=== PATIENT | male | born 1980 | race Hispanic/Latino ===

== ENCOUNTER 2020-01-24 08:57 | Outpatient (NON) | payer OTHER, SELFPAY ==
[2020-01-24 18:34] LABS: SARS-CoV-2 RNA PCR Negative
== END 2020-01-24 08:58 ==
LOC: ANHCOVIDDT 08:59
PROVIDERS: PCP Family Medicine; Visit Provider Physician Assistant
DX: Z20.828 Contact with and (suspected) exposure to other viral communicable diseases (principal); R05 Cough
CPT/HCPCS: 87635; C9803; U0003

== ENCOUNTER → 2020-01-31 11:50 | Outpatient (CLI) | payer OTHER, SELFPAY ==
--- NOTE | ~2020-01-31 | XR_ITS ---
EXAMINATION: XR chest 2V EXAM DATE: 01/31/2020 11:59 INDICATION: R05 - Cough. TECHNIQUE: Frontal and lateral projections of the chest obtained and reviewed. There is no prior joey dy for comparison. FINDINGS: The lungs are clear. There are no pleural effusions. The cardiomediastinal silhouette is within normal limits. There is no pneumothorax suspected. The bones and soft tissues are unremarkab le. IMPRESSION: No acute cardiopulmonary findings. Reviewed, dictated and finalized at location B. 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
== END ==
PROVIDERS: PCP Family Medicine; Visit Provider Family Medicine
DX: R05 Cough (principal)
CPT/HCPCS: 71046

== ENCOUNTER 2020-04-06 19:55 | Emergency (ER) | payer OTHER, SELFPAY ==
--- NOTE | ~2020-04-06 | XR_ITS ---
EXAMINATION: XR foot RT min 3V DATE: 04/06/2020 20:16 INDICATION: Right foot injury. TECHNIQUE: 4 views of right foot were obtained. COMPARISON: None. FINDINGS: There is mild hallux valgus. No fracture. There is mild osteoarthritis of first metatarsoph alangeal joint. There is an enthesophyte at posterior aspect of calcaneal tuberosity. IMPRESSION: 1. Mild hallux valgus. 2. Mild osteoarthritis of first metatarsophalangeal joint. Reviewed, dictated and finalized at location A. 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
[2020-04-06 20:00] VITALS: BP 165/103; PULSE 79; RESP 18; TEMP 36.4; O2SAT 99
--- NOTE | 2020-04-06 20:29 | ED.LOWEXIN ---
HPI - Extremity Injury (Lower) General Chief Complaint: Extremity Injury, Lower Stated Complaint: accident at work/ right foot injury Time Seen by Provider: 04/06/20 20:05 Source: patient Mode of arrival: ambulatory Limitations: no limitations History of Present Illness HPI Narrative: 39-year-old male History of hypertension Presents complaining of pain after dropping a reba on his big toe at work No other problem Related Data Allergies Allergy/AdvReac Type Severity Reaction Status Date / Time naproxen Allergy Unknown dizzy, Verified 04/06/20 20:03 altered mental status Review of Systems Musculoskeletal: Musculoskeletal: Reports arthralgias and Reports joint swelling Integumentary/Breasts: Skin/Breast: Denies rash PMFSH Past Medical History Medical History Anxiety Asthma Depression Hypertension 2018 Kidney stone 2016 Obesity Family History Family History Other Asthma Carcinoma of colon Cerebrovascular accident Depression Glaucoma Hyperlipidemia Hypertension Social History Social History Smoking status: Former smoker (discussed reducing his vaping use) Exam Const: General: no acute distress and alert Orientation/consciousness: patient oriented x3 Resp: Effort & Inspection: normal respiratory effort Neuro: General: patient oriented x3 Speech: normal speech Extrem: Other: Right big toe has a very tiny perhaps 1 mm subungual hematoma at the base and a tiny abrasion/lac of the cuticle on that area Course Vital Signs Vital signs: Vital Signs Temperature 36.4 C 04/06/20 20:00 Pulse Rate 79 04/06/20 20:00 Respiratory Rate 18 04/06/20 20:00 Blood Pressure 165/103 H 04/06/20 20:00 Pulse Oximetry 99 04/06/20 20:00 Temperature 36.4 C 04/06/20 20:00 Pulse Rate 79 04/06/20 20:00 Respiratory Rate 18 04/06/20 20:00 Blood Pressure 165/103 H 04/06/20 20:00 Pulse Oximetry 99 04/06/20 20:00 MDM - Extremity Injury (Lower) Imaging Data Radiologist's impression: ITS Impressions Foot X-Ray 04/06/20 20:18 IMPRESSION: 1. Mild hallux valgus. 2. Mild osteoarthritis of first metatarsophalangeal joint. Discharge Plan Discharge Clinical Impression: Injury of toe Patient Disposition: Home, Self-Care Condition: Stable Instructions: Foot Contusion (ED) Additional Instructions: Ice, tylenol or avil as needed, wear a reasonably supportive and protective shoe Prescriptions: No Action venlafaxine 75 mg capsule,extended release 24hr 75 mg PO DAILY Qty: 90 RF: 1 alprazolam [Xanax] 0.25 mg tablet 0.25 mg PO TID PRN (Reason: anxiety) Qty: 60 RF: 0 amlodipine 10 mg tablet 10 mg PO DAILY Qty: 30 RF: 5 albuterol sulfate [ProAir HFA] 90 mcg/actuation HFA aerosol inhaler 1 puff INHALATION Q4H PRN (Reason: shortness of breath or wheezing) Qty: 18 RF: 3 valsartan-hydrochlorothiazide 160-25 mg tablet 1 tablet PO DAILY Qty: 30 RF: 5 Follow-up/Referrals: Sara Husain MD [Primary Care Provider] -
== END 2020-04-06 20:40 | disposition home or self-care (01) ==
LOC: ANHED 20:42
PROVIDERS: Emergency Provider Emergency Medicine; PCP Family Medicine
DX: S99.921A Unspecified injury of right foot, initial encounter (principal); J45.909 Unspecified asthma, uncomplicated; Z87.442 Personal history of urinary calculi; E66.9 Obesity, unspecified; M20.11 Hallux valgus (acquired), right foot; M19.071 Primary osteoarthritis, right ankle and foot; W20.8XXA Other cause of strike by thrown, projected or falling object, initial encounter
CPT/HCPCS: 73630; 99283

== ENCOUNTER 2020-08-08 08:40 | Outpatient (CLI) | payer BC, SELFPAY ==
--- NOTE | ~2020-08-08 | US_ITS ---
EXAMINATION: US abdomen limited DATE: 08/08/2020 09:36 INDICATION: Other specified abnormal findings of blood chemistry TECHNIQUE: Multiple grayscale and Doppler ultrasound images of the abdomen were obtained. COMPARISON: None available FINDINGS: Bowel gas obscures visualization of the pancreas. The visualized portions of the pancreas a re unremarkable. The liver demonstrates increased echogenicity, heterogenous echotexture, and decreas ed through transmission. No surface nodularity. Normal hepatopetal flow in the main portal vein. The gallbladder is normal with no abnormal wall thickening, pericholecystic fluid or stones. The normal c ommon bile duct measures 6 mm. There was no sonographic Caraballo sign. There is questionable mild hydro nephrosis of the partially imaged right kidney. IMPRESSION: 1. Diffuse hepatic steatosis. 2. Possible mild right hydronephrosis. Reviewed, dictated and finalized at location B.
== END 2020-08-08 08:41 | disposition home or self-care (01) ==
PROVIDERS: PCP Family Medicine; Visit Provider Physician Assistant
DX: R79.89 Other specified abnormal findings of blood chemistry (principal); K76.0 Fatty (change of) liver, not elsewhere classified
CPT/HCPCS: 76705

== ENCOUNTER → 2021-01-23 01:05 | Outpatient (CLI) | payer OTHER, SELFPAY ==
[2021-01-24 14:30] LABS: SARS-CoV-2 RNA PCR Negative
== END ==
PROVIDERS: PCP Family Medicine; Visit Provider Physician Assistant
DX: Z20.822 Contact with and (suspected) exposure to COVID-19 (principal)
CPT/HCPCS: C9803; U0003; U0005

== ENCOUNTER → 2021-02-28 09:23 | Outpatient (CLI) | payer OTHER, SELFPAY ==
[2021-02-28 14:38] LABS: Influenza A QL RT-PCR Negative (Negative); Influenza B QL RT-PCR Negative (Negative); SARS-CoV-2 RNA PCR Positive
== END ==
PROVIDERS: PCP Family Medicine; Visit Provider Physician Assistant
DX: U07.1 COVID-19 (principal); R50.9 Fever, unspecified
CPT/HCPCS: 87502; C9803; U0003; U0005

== ENCOUNTER 2021-04-27 14:09 | Outpatient (CLI) | payer OTHER, SELFPAY ==
--- NOTE | ~2021-04-27 | XR_ITS ---
EXAMINATION: XR foot LT min 3V DATE: 04/27/2021 15:03 INDICATION: Left foot pain. TECHNIQUE: 4 views of left foot were obtained. COMPARISON: None. FINDINGS: There is mild hallux valgus. No fracture. There is mild osteoarthritis of first metatarsoph alangeal joint. There are enthesophytes at the posterior and plantar aspects of calcaneal tuberosity. IMPRESSION: 1. Mild hallux valgus. 2. Mild osteoarthritis of first metatarsophalangeal joint. Reviewed, dictated and finalized at location A.
== END 2021-04-27 14:10 ==
PROVIDERS: PCP Family Medicine; Visit Provider Physician Assistant
DX: M20.12 Hallux valgus (acquired), left foot (principal); M19.072 Primary osteoarthritis, left ankle and foot
CPT/HCPCS: 73630

== ENCOUNTER 2021-11-06 20:51 | Observation (INO) | payer SELFPAY ==
--- NOTE | ~2021-11-06 | US_ITS ---
EXAMINATION: US carotid duplex BI DATE: 11/07/2021 08:37 INDICATION: Right hemiparesis. Transient ischemic attack. TECHNIQUE: Grayscale, color Doppler, and pulsed Doppler images of the cervical carotid arteries were obtained. The degree of vessel stenosis is placed in one of the following categories: normal, <50%, 5 0-69%, >=70% but less than near-occlusion, near-occlusion, or total occlusion. Note that percent sten osis relative to normal distal artery lumen diameter is indirectly measured from velocity measurement s as described by Wilson, et al. Radiology 2003; 229:340-346. COMPARISON: None. FINDINGS: RIGHT: The right common carotid artery (CCA) peak systolic velocity (PSV) is 96 cm/s. The right internal car otid artery (ICA) PSV is 78 cm/s. The right ICA end-diastolic velocity (EDV) is 13 cm/s. The right IC A/CCA PSV ratio is 0.8. Grayscale and color Doppler images yield an estimate of <50% diameter reducti on from plaque in the ICA. There is antegrade flow in the right vertebral artery. LEFT: The left CCA PSV is 96 cm/s. The left ICA PSV is 72 cm/s. The left ICA EDV is 20 cm/s. The left ICA/C CA PSV ratio is 0.7. Grayscale and color Doppler images yield an estimate of <50% diameter reduction from plaque in the ICA. There is antegrade flow in the left vertebral artery. IMPRESSION: 1. <50% stenosis in the right internal carotid artery. 2. <50% stenosis in the left internal carotid artery. Reviewed, dictated and finalized at location A.
--- NOTE | ~2021-11-06 | MR_ITS ---
EXAMINATION: MR brain/brain stem wo con DATE: 11/07/2021 07:48 INDICATION: Right hemiparesis. TECHNIQUE: Magnetic resonance imaging (MRI) of the brain and brainstem was performed without intraven ous contrast. COMPARISON: Head CT 11/06/2021 FINDINGS: There is no intracranial hemorrhage, acute infarction, or abnormal intracranial mass lesion . There are areas of increased T2-weighted signal intensity in the bilateral parietal lobe deep white matter. The ventricles are normal in size. There is mild mucosal thickening in the ethmoid sinuses. The orbits are normal. The mastoid air cells are normal. IMPRESSION: 1. Mild nonspecific cerebral white matter disease. The differential diagnosis includes premature senior benefits manager sulema small vessel ischemic disease (especially if the patient has cardiovascular risk factors), demyel inating disease such as multiple sclerosis, drug abuse, vasculitis, or reactive astrocytosis (gliosis ) secondary to nonspecific etiology. Reviewed, dictated and finalized at location A. IMPRESSION: 1. Mild nonspecific cerebral white matter disease. The differential diagnosis i ncludes premature chronic small vessel ischemic disease (especially if the kitty ent has cardiovascular risk factors), demyelinating disease such as multiple sc lerosis, drug abuse, vasculitis, or reactive astrocytosis (gliosis) secondary t o nonspecific etiology.
--- NOTE | ~2021-11-06 | MR_ITS ---
EXAMINATION: MR cervical spine wo/w con DATE: 11/07/2021 15:16 INDICATION: Stable demyelinating disease with right hemiparesis TECHNIQUE: Magnetic resonance imaging (MRI) of the cervical spine was performed without and with 20 m L Multihance intravenous contrast. Sequences included sagittal T2-weighted FSE, sagittal T2-weighted FS FSE, sagittal T1-weighted FSE, axial T2-weighted FSE, and axial T1-weighted SE. Postcontrast seque nces included sagittal T1-weighted FS FSE, and axial T1-weighted FS SE. COMPARISON: None FINDINGS: Straightening of the normal cervical lordosis. No spondylolisthesis or facet subluxation. Vertebral body heights are normal. Bone marrow signal intensity is normal. Annular fissure and mild disc heigh t loss at C6-C7. Cord signal intensity is normal with no abnormally enhancing lesions. Visualized cer vical soft tissues are unremarkable. The following disc levels are specifically discussed: C2-C3 through C4-C5: The disc does not extend beyond the endplate margin. There is no uncovertebral j oint osteoarthritis. There is mild bilateral facet joint osteoarthritis. There is no neural foraminal stenosis. There is no central canal stenosis. C5-C6: The disc does not extend beyond the endplate margin. There is mild right and moderate left unc overtebral joint osteoarthritis. There is mild bilateral facet joint osteoarthritis. There is mild bi lateral neural foraminal stenosis. There is no central canal stenosis. C6-C7: Disc is bulging and subtly flattens the ventral surface of the cord. There is moderate right a nd severe left uncovertebral joint osteoarthritis. There is mild bilateral facet joint osteoarthritis . There is moderate right and severe left neural foraminal stenosis. There is mild central canal sten osis. C7-T1: The disc does not extend beyond the endplate margin. There is moderate right uncovertebral naomie nt osteoarthritis. There is moderate bilateral facet joint osteoarthritis. There is mild left and mil d to moderate right neural foraminal stenosis. There is no central canal stenosis. IMPRESSION: 1. Mild cervical spondylosis most notable for severe left-sided uncovertebral osteoarthritis and venessa re associated neural foraminal stenosis on the left at C6-C7. 2. No cervical spinal cord lesions. Reviewed, dictated and finalized at location A. IMPRESSION: 1. Mild cervical spondylosis most notable for severe left-sided uncovertebral o steoarthritis and severe associated neural foraminal stenosis on the left at C6 -C7. 2. No cervical spinal cord lesions.
--- NOTE | ~2021-11-06 | CT_ITS ---
EXAMINATION: CT brain wo con DATE: 11/06/2021 21:01 INDICATION: Left-sided hemiparesis TECHNIQUE: Computed tomography (CT) of the head was performed without intravenous contrast. Sagittal and coronal reconstructions were performed. The mA was adjusted according to patient size. Iterative reconstruction technique was employed. The dose-length product was 681.00 mGy-cm. COMPARISON: None FINDINGS: No acute intracranial hemorrhage, acute infarction or abnormal extra axial fluid collection. Ventricl es are normal and symmetric. No mass/mass effect. Mild mucosal thickening the left ethmoid sinus. The orbits are normal. Bilateral mastoids are hyperpneumatized with trace right mastoid effusion. IMPRESSION: 1. Normal brain. No acute intracranial process. Reviewed, dictated and finalized at location A.
--- NOTE | ~2021-11-06 | MR_ITS ---
EXAMINATION: MR brain/brain stem w con DATE: 11/07/2021 15:16 INDICATION: Possible demyelinating disease TECHNIQUE: Magnetic resonance imaging (MRI) of the brain and brainstem was performed with 15 mL Multi tamiko intravenous contrast. Sequences included as contrast axial, sagittal and coronal T1-weighted SE and sagittal and coronal T2-weighted FLAIR. COMPARISON: MRI dated 11/07/2021 FINDINGS: Again seen are relatively symmetric small regions of nonspecific increased T2-weighted signal intensi ty in the cerebral white matter with relatively symmetric pattern involving the deep parietal and mor e prominently occipital white matter. No abnormally enhancing lesions identified. The ventricles are symmetric and normal in size. There are no abnormal extra-axial fluid collections. Flow voids are see n in the cerebral arteries on the T2-weighted sequences consistent with their expected patency. Mild mucosal thickening the bilateral ethmoid sinuses. Visualized orbits and soft tissues are unremarkable . IMPRESSION: 1. Relatively symmetric nonspecific matter T2 hyperintensity in the deep right occipital white matter with differential as previously detailed, but would also include posterior reversible encephalopathy syndrome (PRES). Reviewed, dictated and finalized at location A.
--- NOTE | ~2021-11-06 | XR_ITS ---
EXAMINATION: XR chest 1V portable DATE: 11/06/2021 21:14 INDICATION: Smoker with hypertension presenting with neurologic symptoms and left-sided numbness. TECHNIQUE: frontal and lateral views of the chest were obtained. COMPARISON: Chest radiograph dated 01/31/20 FINDINGS: The lungs remain clear with no focal airspace opacities, pulmonary edema, pleural effusion or pneumot horax. The cardiomediastinal silhouette is normal. Visualized bones and soft tissues are unremarkable . IMPRESSION: 1. No acute cardiopulmonary disease. Reviewed, dictated and finalized at location A.
--- NOTE | 2021-11-06 20:55 | ECG_ITS ---
Measurements Intervals [place] Rate: 85 P: 27 PA: 173 QRS: 0 QRSD: 109 T: 13 QT: 350 QTc: 418 Interpretive Statements SINUS RHYTHM INCOMPLETE RIGHT BUNDLE BRANCH BLOCK LOW QRS VOLTAGE IN PRECORDIAL LEADS NONSPECIFIC T-WAVE ABNORMALITY- ANTEROLAT/INF LEADS BASELINE WANDER- III, AVR, AVF BORDERLINE ECG NO PREVIOUS ECG AVAILABLE FOR COMPARISON Electronically Signed On 11-06-2021 21:56:33 CDT by Gordo Calvert D.O.
--- NOTE | 2021-11-06 20:56 | ED.GENADULT ---
HPI - General Adult General Chief complaint: Neuro Symptoms/Deficit Stated complaint: sob, numbness Time Seen by Provider: 11/06/21 20:54 History of Present Illness HPI narrative: 41-year-old male with history of anxiety presenting the emergency department for evaluation of left-sided weakness. Patient states about 20 minutes prior to arrival he felt some left arm and leg numbness and weakness. Patient states he does feel it is improved. Patient denies any current associated numbness or weakness. Patient has history of hypertension, COPD, morbid obesity, anxiety and depression Related Data Allergies Allergy/AdvReac Type Severity Reaction Status Date / Time naproxen Allergy Unknown dizzy, Verified 06/18/21 15:45 altered mental status Review of Systems Review of Systems: CONSTITUTIONAL: Denies fever, chills, or sweats. EYES: Denies visual changes, redness, or discharge. ENT: Denies rhinorrhea, congestion, sore throat, or otalgia. CARDIOVASCULAR: Denies chest pain, palpitations, or edema. RESPIRATORY: Denies cough or dyspnea. GASTROINTESTINAL: Denies abdominal pain, nausea, vomiting, or diarrhea. GENITOURINARY: Denies dysuria or hematuria. SKIN: Denies rash or itching. MUSCULOSKELETAL: Denies back pain, joint pain, or myalgia. NEUROLOGIC: See HPI PMFSH Past Medical History Medical History (Updated 11/07/21 @ 01:45 by Juan Manuel Quintanilla MD) Anxiety Asthma Depression Hypertension 2018 Hypogonadism in male Kidney stone 2016 Obesity Vitamin D deficiency Family History Family History Other Asthma Carcinoma of colon Cerebrovascular accident Depression Glaucoma Hyperlipidemia Hypertension Social History Social History Smoking status: Current every day smoker Tobacco type: e-cigarettes/vaping Second hand tobacco smoke exposure: No Additional smoking assessment comments: currently vapes Alcohol intake: current Drinks per week: 1 Substance use: never Substance use type: does not use Gender identity (if verbalized by the patient): Male Spiritual care concerns: No Exam Narrative: APPEARANCE: Well appearing, no pain, no distress, well-nourished. HEAD: normocephalic, atraumatic. EYES: PERRLA/EOMI, conjunctivae clear. NOSE: Normal no drainage NECK: Supple. No adenopathy, no masses. RESPIRATORY: Airway patent, respirations nonlabored. Clear to auscultation bilaterally, no rales, rhonchi, wheezing. CARDIOVASCULAR: Regular rate and rhythm without murmurs rubs or gallops. ABDOMINAL: Soft, nontender, nondistended, normal bowel sounds MUSCULOSKELETAL: Moves all extremities. Strength/ROM intact, No edema, No calf tenderness. NEURO: Alert. Cranial nerves II through XII intact. Normal comprehensive neuro exam. No deficit for sensation or coordination SKIN: Warm, dry. Normal Color PSYCHIATRIC: Normal affect/mood. Course Course Emergency Course: Patient describes symptoms consistent with a TIA. Patient's head CT was negative. Due to patient's risk factors admission was recommended. Case was discussed with neurology and Dr. Harrington agreed with the plan for admission and further TIA work-up. Case was discussed with the hospitalist as well. Patient was stable and symptom-free at time of admission. Vital Signs Vital signs: Vital Signs Temperature 97.8 F 11/06/21 21:02 Pulse Rate 85 11/06/21 21:02 Respiratory Rate 20 11/06/21 21:02 Blood Pressure 162/106 H 11/06/21 21:02 Pulse Oximetry 99 11/06/21 21:02 Oxygen Delivery Room Air 11/06/21 21:02 Temperature 97.6 F 11/06/21 23:16 Pulse Rate 73 11/07/21 00:00 Respiratory Rate 18 11/06/21 23:16 Blood Pressure 130/80 11/06/21 23:16 Pulse Oximetry 97 11/06/21 23:16 Oxygen Delivery Room Air 11/06/21 21:02 Medical Decision Making Vital Signs Vital Signs: Vital Signs
[2021-11-06 21:02] VITALS: BP 162/106; PULSE 85; RESP 20; TEMP 36.6; O2SAT 99
[2021-11-06 21:03] LABS: Glucose Point of Care 141 mg/dl (65-105)
[2021-11-06 21:13] VITALS: BP 162/106; PULSE 88; RESP 16; O2SAT 98
[2021-11-06 21:16] LABS: Basophils Absolute Auto 0.1 K/mm3 (0.0-0.1); Basophils Percent Auto 0.4 % (0.2-1.2); Eosinophils Absolute Auto 0.1 K/mm3 (0-0.3); Hematocrit 51.8 % (42.0-52.0); Hemoglobin 17.7 g/dL (14.0-18.0); Immature Granulocyte Absolute 0.02 K/mm3 (0.00-0.031); Immature Granulocyte Percent A 0.2 % (0-0.5); Lymphocytes Absolute Auto 3.53 K/mm3 (0.9-3.2); Lymphocytes Percent Auto 30.1 % (18.3-44.2); Mean Corpuscular HGB Conc 34.2 g/dl (32-36); Mean Corpuscular Hemoglobin 30.7 pg (26-34); Mean Corpuscular Volume 89.8 fl (80-100); Mean Platelet Volume 9.9 fl (7.4-10.4); Monocytes Absolute Auto 1.1 K/mm3 (0.1-0.6); Monocytes Percent Auto 9.3 % (2.6-8.5); Neutrophils Absolute Auto 6.9 K/mm3 (1.3-6.7); Platelet Count Result 303 k/mm3 (150-375); Red Blood Count 5.77 M/mm3 (4.6-6.20); Red Cell Distribution Width 13.2 % (11.5-14.5); White Blood Count 11.7 K/mm3 (4.5-10.0)
[2021-11-06 21:26] LABS: Prothrombin Time 12.6 Seconds (11.1-14.7)
[2021-11-06 21:28] LABS: Alanine Aminotransferase 40 U/L (6-50); Albumin Level 4.6 g/dL (3.5-5.1); Alkaline Phosphatase 129 U/L (38-126); Anion Gap 15 mmol/L (8-16); Aspartate Amino Transferase 35 U/L (17-59); Bilirubin,Total 0.3 mg/dL (0.2-1.3); Blood Urea Nitrogen 12 mg/dL (9-20); Calcium 9.1 mg/dL (8.4-10.2); Carbon Dioxide 26 mmol/L (22-30); Chloride 99 mmol/L (98-107); Estimated Glomerular Filt Rate > 60; Glucose 132 mg/dL (65-110); Partial Thromboplastin Time 27.7 SECONDS (22.3-36.8); Potassium 3.4 mmol/L (3.4-5.0); Sodium 140 mmol/L (137-145)
[2021-11-06 21:43] LABS: Troponin I < 0.012 ng/mL (0.000-0.034)
--- NOTE | 2021-11-06 22:12 | PM.IMHP ---
H&P: HPI History of Present Illness Date/Time: 11/06/21 22:12 Chief Complaint: weakness Narrative: This is a 41-year-old male with past medical history significant for morbid obesity, COPD/ emphysema, tobacco dependence, hypertension, patient used to smoke and currently vapes. Patient presents to the emergency room after he had 1 episode while resting in bed of palpitations, and left-sided weakness with numbness and tingling. Patient has been in his usual state of health last time he was his usual was was just prior to going to bed he got up today and he was fine and spent all day at work and he was a usual day for him. By the time patient arrived to emergency room this had resolved at the time of my visit patient denied any discomfort or pain Or persistence of weakness or tingling and numbness. Patient denies any fevers, rigors, chills, cough, sputum production, chest pain, dizziness, lightheadedness, syncope, near syncope, leg swelling, pedal swelling, nausea, vomiting, abdominal pain. Preliminary workup has been unrevealing for the most part. Patient has been admitted for further evaluation, management and treatment. Review of Systems Review of Systems: Left-sided weakness, numbness, tingling, palpitations. Constitutional: Constitutional: Denies chills, Denies fatigue, Denies fever(s), Denies lethargy, Denies malaise, Denies night sweats, Denies poor appetite and Denies weakness Eyes: Eyes: Denies change in vision ENT: Denies dysphagia, Denies vertigo, Denies dizziness, Denies odynophagia and Denies disequilibrium Cardiovascular: Cardiovascular: Denies chest pain, Denies syncope, Denies pedal edema, Denies irregular heart rhythm, Denies lightheadedness, Denies radiating jaw, neck or arm pain, Reports palpitations and Denies dyspnea on exertion Respiratory: Respiratory: Denies cough, Denies excessive phlegm production, Denies pain on inspiration, Denies dyspnea and Denies dyspnea on exertion Gastrointestinal: Gastrointestinal: Denies abdominal pain, Denies dyspepsia, Denies heartburn, Denies diarrhea, Denies nausea and Denies vomiting Genitourinary: Genitourinary: Denies dysuria Musculoskeletal: Musculoskeletal: Denies myalgias, Denies joint swelling, Denies limited range of motion, Denies muscle weakness and Denies neck pain Integumentary/Breasts: Skin/Breast: Denies rash Neurologic: Denies vertigo, Denies dizziness, Reports tingling, Reports paresthesias and Reports weakness Psychiatric: Psychiatric: Reports no additional psychiatric complaints Endocrine: Endocrine: Denies cold intolerance, Denies flushing, Denies heat intolerance, Denies polyphagia, Denies polydipsia and Denies palpitations Hematologic/Lymphatic: Hematologic/Lymphatic: Reports no additional hematologic/lymphatic complaints and Reports as per HPI Allergic/Immunologic: Allergic/Immunologic: Reports no additional allergic/immunologic complaints and Reports as per HPI PMFSH Past Medical History Medical History (Updated 11/07/21 @ 00:41 by Kevin Ortega MD) Anxiety Asthma Depression Hypertension 2018 Hypogonadism in male Kidney stone 2016 Obesity Vitamin D deficiency Family History Family History Other Asthma Carcinoma of colon Cerebrovascular accident Depression Glaucoma Hyperlipidemia Hypertension Social History Social History Smoking status: Current every day smoker Tobacco type: e-cigarettes/vaping Second hand tobacco smoke exposure: No Additional smoking assessment comments: currently vapes Alcohol intake: current Drinks per week: 1 Substance use: never Substance use type: does not use Gender identity (if verbalized by the patient): Male Spiritual care concerns: No Meds Home Medications and Allergies Home Medications Medication Instructions Recorded Confirmed Type al
[2021-11-06 23:07] VITALS: BP 160/80; PULSE 88; RESP 16; O2SAT 98
--- NOTE | 2021-11-06 23:10 | ADMGEN ---
This patient, Deacon Staples, was admitted to Medical Room 247-. Patient/family oriented to hospital policies and general routines including ID bracelet, bed and alarms, visiting hours, pain management, procedures, bathroom and other care routines, personal items, smoking policy, room service/diet, and visiting hours. Information on how to activate the Rapid Response Team has been discussed. Patient/Family are encouraged to report perceived risks to care and to ask questions if they do not understand what they are told or what they should do.
[2021-11-06 23:16] VITALS: BP 130/80; PULSE 68; RESP 18; TEMP 36.4; O2SAT 97; BMI 48.7
[2021-11-06 23:39] VITALS: PULSE 94
[2021-11-07] VITALS (8 sets, daily range): BP systolic 114–129; BP diastolic 61–74; PULSE 53–74; RESP 16–20; TEMP 36.2–36.7; O2SAT 96–97
--- NOTE | 2021-11-07 | ECHO_ITS ---
Patient Info Name: Deacon Staples Age: 41 years : 1980 Gender: Male Ht: 69 in Wt: 330 lbs BSA: 2.78 m2 HR: 56 bpm BP: 114 / 63 mmHg Heart Rhythm: Sinus Rhythm Technical Quality: Fair Exam Date: 11/07/2021 3:38 PM Exam Location: [facility]monary Patient Status: Outpatient Admit Date: 11/06/2021 Staff Ordering Physician: Kevin Ortega MD [employer] Teacher: Emily Ragland RDCS Attending Provider: Mariana De La O PA-C Referring Physician: Jordan CASTREJON; Exam Type: CA echo dop color flow w con Study Info Indications R00.2 - Palpitations Complete two-dimensional, color flow and Doppler transthoracic echocardiogram is performed with contrast to opacify the left ventricle and to improve the deliniation of the left ventricle endocardial borders. Contrast/Agitated Saline Contrast/Ag. Saline: Definity Amount: 3.00 ml Administered By: Emily Ragland RDCS Existing IV Access: Yes IV Access Condition: patent with no signs of infiltration Summary 1. Left ventricular chamber dimension is normal. 2. Definity contrast administered improved wall motion interpretation. 3. Left ventricular systolic function is normal, estimated at 60-65%. 4. The left ventricular diastolic function is grade I diastolic dysfunction. 5. E/e' 7 is not elevated. 6. There is trace tricuspid valve regurgitation. 7. No pulmonary hypertension, estimated pulmonary arterial systolic pressure is 21 mmHg. Left Ventricle E/e' 7 is not elevated. Definity contrast administered improved wall motion interpretation. Left ventricular chamber dimension is normal. Left ventricular systolic function is normal, estimated at 60-65%. The left ventricular diastolic function is grade I diastolic dysfunction. Right Ventricle Right ventricular systolic function is normal and with normal TAPSE 2.2 cm. Right ventricular chamber dimension is normal. Left Atria Left atrial chamber dimension is normal. Right Atria Right atrial chamber dimension is normal. Aortic Valve The aortic valve is trileaflet. There is no aortic valve stenosis. There is no aortic valve regurgitation. Pulmonic Valve There is no pulmonic regurgitation. Mitral Valve There is no mitral valve stenosis. There is no mitral valve regurgitation. Tricuspid Valve There is trace tricuspid valve regurgitation. No pulmonary hypertension, estimated pulmonary arterial systolic pressure is 21 mmHg. Pericardium/Pleural There is no pericardial effusion. Inferior Vena Cava Normal inferior vena cava with >50% collapse upon inspiration consistent with normal right atrial pressure, 5 mmHg. Aorta The aortic root size at the sinus of Valsalva is normal. Left Ventricular Outflow Tract Name Value Normal LVOT 2D LVOT Diameter 2.11 cm LVOT Doppler LVOT Peak Gradient 6 mmHg LVOT Mean Gradient 3 mmHg LVOT VTI 21.94 cm LVOT VTI/AV VTI Ratio 0.79 LVOT Stroke Volume 76.81 ml
[2021-11-07 00:07] LABS: Appearance Urine Clear (Clear); Bilirubin Urine Negative (Negative); Blood Urine 2+ (Negative); Color Urine Yellow (Yellow); Glucose Urine UA Negative (Negative); Ketones Urine Negative (Negative); Leukocyte Esterase Ur Negative LEU/UL (Negative); Nitrate Urine Negative (Negative); Protein Urine Negative (Negative); Urobilinogen Urine 0.2 mg/dL (<2.0)
[2021-11-07 00:14] LABS: Add Urine Microscopic? YES; Mucus Urine Rare /lpf; Squamous Epithelial Cell Urine Rare /hpf (Few); WBC Urine 0-3 /hpf
[2021-11-07] MEDS: hydroCHLOROthiazide 25 MG TABLET PO (09:09)
[2021-11-07] MEDS: amLODIPine BESYLATE 5 MG TABLET 10 MG PO (09:09)
[2021-11-07] MEDS: VALSARTAN 160 MG TABLET PO (09:09)
[2021-11-07] MEDS: ENOXAPARIN 40 MG/0.4 ML SYRINGE SUB-Q (09:09)
[2021-11-07 09:16] LABS: Cholesterol 203 mg/dL (0-200); HDL Direct 47 mg/dL; Triglycerides 170 mg/dL (<150)
[2021-11-07 09:27] LABS: LDL Cholesterol Direct 134 mg/dL
[2021-11-07 10:20] LABS: Hemoglobin A1C 5.4 % (<5.7)
--- NOTE | 2021-11-07 14:00 | PM.IMPN ---
Progress Note: A&P Assessment and Plan (1) Left sided numbness: Code(s): R20.0 - Anesthesia of skin Status: Acute Assessment and Plan: Patient presented following 1 hour of left-sided numbness in the hand, arm, face. NIHSS 0 on presentation. ABCD2 score is 4. Head CT showed normal brain with no acute intracranial process Carotid Doppler showed <50% stenosis of the bilateral internal carotid arteries Echo is pending Brain MRI completed today showed mild nonspecific cerebral white matter disease with differential including premature chronic small-vessel ischemic disease (pt with hx of HTN, intermittent tobacco use 1 cigarette monthly and daily vaping, remote family hx of CAD), demyelinating disease (MS, drug abuse [pt denies], vasculitis, gliosis) Discussed with neurology. Appreciate consultation Plan for MRI brain with contrast as well as cervical spine MRI with and without contrast for further evaluation of possible demyelinating disease Lipid panel pending, A1c pending (2) Hypertension: Code(s): I10 - Essential (primary) hypertension Status: Acute Assessment and Plan: Blood pressures have been better controlled today. Last BP 129/74 Continue home valsartan-hydrochlorothiazide and amlodipine (3) Asthma: Code(s): J45.909 - Unspecified asthma, uncomplicated Status: Acute Assessment and Plan: Well controlled Albuterol inhaler as needed (4) Anxiety: Code(s): F41.9 - Anxiety disorder, unspecified Status: Acute Assessment and Plan: Seems to be poorly controlled. Patient indicates symptoms nearly every other day. No specific trigger for his anxiety. Alprazolam 0.25 mg tid PRN Patient states he really takes alprazolam because his symptoms often pass quickly before he feels like he needs to take something. Subjective Date/time seen: 11/07/21 14:00 Interval history: Date of service: 11/07/2021 Deacon Staples is a 41-year-old male with a history of hypertension, anxiety, depression, asthma, and hypogonadism who is seen in follow-up for left-sided numbness and tingling. Patient states that last night he had an episode where his ?whole body locked up and his heart was beating rapidly. He thought this was due to anxiety and reports frequent similar symptoms. However he then developed left-sided numbness in his hand, his arm, and the left side of his face. He felt weak and shaky. He had a brief episode, he estimates about 5 seconds, where his vision was blurred and he states that he was briefly stumbling over his words. In total he estimates these symptoms lasted for 1 hour. Today he is feeling back to his usual self with the exception of feeling tired. He denies numbness or tingling in all 4 extremities. He notes some very vague discomfort in the left arm but believes this is due to his IV. He denies speech changes, visual changes. Denies dysphagia. No headache. Denies abdominal pain, nausea, vomiting. No shortness of breath or chest pain. Review of Systems Review of Systems: All systems reviewed & are unremarkable except as noted in HPI and below Exam Narrative: General: Obese, well-appearing 41-year-old male, sitting up in bed, comfortable, NARD Neuro: awake, alert and oriented x4, speech clear, CN II-XII intact, strength 5/5 throughout, sensation intact, no pronator drift, bilateral handcrew foreman strength equal, able to perform rapid alternating movements, able to perform finger to nose HEENMT: normocephalic, atraumatic, EOMI, sclerae anicteric, moist oral mucosa Respiratory: clear to auscultation bilaterally, nonlabored breathing Cardio: regular rate, regular rhythm with S1-S2 Abdomen: nondistended, normoactive bowel sounds, soft, nontender to palpation Extremities: no edema, erythema, or tenderness to palpation, DP pulses 2+ bilaterally Skin: no rashes or lesions, warm and dry Psych: appropriate mood and affect, judgment and ins
--- NOTE | 2021-11-07 14:54 | PC.NURSE ---
On 11/07/21, the student, [Ashley Hogan], provided care and completed [facility] documentation on this patient. I have reviewed the student's documentation and agree with the findings.
[2021-11-07] MEDS: PERFLUTREN LIPID MICROSPHERES 1.5 ML VIAL DILUTED TO 10 ML TOTAL VOLUME IV PUSH (15:29)
--- NOTE | 2021-11-07 15:30 | IVDEFINITY ---
Prior to administration of IV Definity the patient was educated on the risks and benefits of the imaging enhancing agent including potential adverse side effects. The patient verbalized understanding. Allergies were verified. No exclusion criteria were identified and at least one of the following inclusion criteria were met: 1) physician request, 2) patient technically difficult to image (per the [place] [employer] guidelines of two or more segments not discernable within the apical view), or 3) questionable left ventricular function. ?
[2021-11-08] VITALS: PULSE 49
[2021-11-08 04:00] VITALS: PULSE 51
[2021-11-08 05:01] LABS: Hematocrit 51.9 % (42.0-52.0); Hemoglobin 17.4 g/dL (14.0-18.0); Mean Corpuscular HGB Conc 33.5 g/dl (32-36); Mean Corpuscular Hemoglobin 30.7 pg (26-34); Mean Corpuscular Volume 91.5 fl (80-100); Mean Platelet Volume 10.1 fl (7.4-10.4); Platelet Count Result 303 k/mm3 (150-375); Red Blood Count 5.67 M/mm3 (4.6-6.20); Red Cell Distribution Width 13.2 % (11.5-14.5); White Blood Count 8.9 K/mm3 (4.5-10.0)
[2021-11-08 05:49] VITALS: BP 126/78; PULSE 55; RESP 16; TEMP 36.6; O2SAT 96
[2021-11-08 08:00] VITALS: PULSE 62
[2021-11-08] MEDS: amLODIPine BESYLATE 5 MG TABLET 10 MG PO (08:10)
[2021-11-08] MEDS: ENOXAPARIN 40 MG/0.4 ML SYRINGE SUB-Q (08:11)
[2021-11-08] MEDS: VALSARTAN 160 MG TABLET PO (08:11)
[2021-11-08] MEDS: hydroCHLOROthiazide 25 MG TABLET PO (08:11)
--- NOTE | 2021-11-08 08:53 | WPDNEURCNPN ---
Assessment and Plan Assessment and plan (1) Left sided numbness: Code(s): R20.0 - Anesthesia of skin Status: Acute Assessment and Plan: Mr. Staples is a 41 year old male with a history of HTN who had a 1 hour episode of left face and left arm numbness. MRI brain showed non-specific white matter disease, but no evidence of acute stroke or contrast enhancement. White matter disease was mostly involved bilateral occipital regions (left worse than right). MRI of cervical spine did not show any lesions. Discussed with patient that these lesions may be secondary to high blood pressure, but given his age and history of left sided numbness involving the face and arm, will need to monitor for demyelinating disease such as multiple sclerosis. Patient also has several risk factors for TIA which could be a possibility as well. Plan - No further work-up needed during admission, ok to discharge from Neuro standpoint - Will have him follow-up in [facility] in about 3 months and likely repeat imaging in about 3-6 months Consult date: 11/08/21 Time Seen: 08:53 Reason for consult: Left sided numbness HPI: Deacon Staples is a 41 year old male with a history of HTN, tobacco use/vaping presenting with 1 hour episode of left sided numbness (hand, arm, face). He reports that he was having an anxiety attack at that time. Other than some stuttering of his words he denied any laungage impairment, dysarthria, dysphagia. He had generalized weakness but no focal weakness. He has had several similar episodes of left face and arm numbness within the past four years that also occurred in the setting of anxiety attacks. He denies any unilateral vision loss or color blindness. Work-up: CT head negative for acute process. Carotid doppler showed <50% stenosis of the bilateral internal carotid arteries. MRI brain showed nonspecific white matter disease localized mostly to the subcortical occipital region (left lesion appears bigger than right). MRI brain w/ contrast showed no contrast enhancing lesion. MRI cervical spine w/wo contrast was negative for any signal change in the spine. HgbA1c was normal. LDL 134. No family history of stroke at younger age, clotting disorders, or demyelinating disorders that patient is aware of. Review of Systems Constitutional: Constitutional: Reports weakness Eyes: Eyes: Reports no additional eye complaints ENT: Reports system reviewed and no additional complaints, except as documented and Reports Normal hearing present Cardiovascular: Cardiovascular: Reports no additional cardiovascular complaints Respiratory: Respiratory: Reports dyspnea Gastrointestinal: Gastrointestinal: Reports no additional gastrointestinal complaints Genitourinary: Genitourinary: Reports no additional male genitourinary complaints Musculoskeletal: Musculoskeletal: Reports arthralgias Integumentary/Breasts: Skin/Breast: Reports system reviewed and no additional complaints, except as docu Neurologic: Reports as per HPI Psychiatric: Psychiatric: Reports anxiety PMFSH Past Medical History Medical History Anxiety Asthma Depression Hypertension 2018 Hypogonadism in male Kidney stone 2016 Obesity Vitamin D deficiency Family History Family History Other Asthma Carcinoma of colon Cerebrovascular accident Depression Glaucoma Hyperlipidemia Hypertension Social History Social History Smoking status: Current every day smoker Tobacco type: e-cigarettes/vaping Second hand tobacco smoke exposure: No Additional smoking assessment comments: currently vapes Alcohol intake: current Drinks per week: 1 Substance use: never Substance use type: does not use Gender identity (if verbalized by the patient): Male Spiritual care concerns: No Meds Ho
[2021-11-08 12:00] VITALS: PULSE 100
[2021-11-08 14:00] VITALS: BP 134/81; PULSE 70; RESP 20; TEMP 36.4; O2SAT 97
--- NOTE | 2021-11-08 14:27 | PM.DS ---
DS: Admitting Diagnosis Discharge Date 11/08/2021 Admitting Diagnosis left-sided numbness DS: Discharge Diagnosis Discharge Diagnosis (1) Left sided numbness: Code(s): R20.0 - Anesthesia of skin Status: Acute Assessment and Plan: Patient presented following 1 hour of left-sided numbness in the hand, arm, face. NIHSS 0 on presentation. ABCD2 score is 4. Head CT showed normal brain with no acute intracranial process Carotid Doppler showed <50% stenosis of the bilateral internal carotid arteries Echo with normal EF, grade 1 diastolic dysfunction, trace TR Brain MRI showed mild nonspecific cerebral white matter disease with differential including premature chronic small-vessel ischemic disease (pt with hx of HTN, intermittent tobacco use, remote family hx of CAD), demyelinating disease (MS, drug abuse [pt denies], vasculitis, gliosis) Patient seen in consultation by Neurology. MRI results post concerning for possible MS given patient's age and symptoms. Follow-up MRI of the brain with contrast and cervical spine MRI with and without contrast showed relatively symmetric nonspecific matter T2 hyperintensity in the deep right occipital white matter and no cervical spinal cord lesions. Patient will follow-up with neurology in 3 months for further monitoring Started on aspirin 81 mg daily Lipid panel reviewed. Started on atorvastatin 10 mg daily. Educated regarding lifestyle modifications include diet and exercise (2) Hypertension: Code(s): I10 - Essential (primary) hypertension Status: Acute Assessment and Plan: Blood pressures were stable. Continue home valsartan-hydrochlorothiazide and amlodipine. (3) Asthma: Code(s): J45.909 - Unspecified asthma, uncomplicated Status: Acute Assessment and Plan: Well controlled. Albuterol inhaler as needed (4) Anxiety: Code(s): F41.9 - Anxiety disorder, unspecified Status: Acute Assessment and Plan: Seems to be poorly controlled. Patient indicates symptoms nearly every other day. No specific trigger for his anxiety. Continue Alprazolam 0.25 mg tid PRN. Discussed follow up with PCP and possible referral to counselor. (5) Tobacco dependence: Code(s): F17.200 - Nicotine dependence, unspecified, uncomplicated Status: Acute Assessment and Plan: Patient endorses smoking 1-2 cigarettes monthly and daily vaping. Educated regarding smoking cessation. DS: Summary Hospital Course Hospital Course: Date of admission: 11/06/2021 Date of discharge: 11/08/2021 Deacon Staples is a 41-year-old male with a history of hypertension, anxiety, depression, asthma, hypogonadism, tobacco dependence who presented to the emergency department on 11/06/2021 from home for evaluation of left-sided weakness 20 minutes prior to presentation. In the ED, his blood pressure was elevated with additional vital signs stable, white blood cell count 11.7, additional laboratory workup unremarkable, head CT showed no acute findings. He was admitted to the hospitalist service for further evaluation and management and was seen in consultation by Neurology. Please see above for further details. MRI ruled out stroke but did show findings of nonspecific white matter disease. Follow-up MRI was more reassuring. Patient will follow-up in 3 months for further monitoring as there were some concerns for MS based on initial MRI and patient is in appropriate age range. He does have issues with poorly controlled anxiety and will need to follow-up with PCP for further monitoring in consideration of referral to counselor or psychiatrist. Educated regarding smoking cessation and lifestyle modifications. Patient requested a note to give to his employer that indicated the reason for his hospitalization so he can be appropriately cleared based on his employer protocols and this was provided at his request. Given the patient's overall improve
== END 2021-11-08 14:48 | disposition home or self-care (01) ==
LOC: ANHED 21:44 → ANH2MED 22:50
PROVIDERS: Physician Assistant; Admitting Provider Internal Medicine; Emergency Provider Emergency Medicine; PCP Family Medicine; Visit Provider Family Medicine
DX: R20.0 Anesthesia of skin (principal); I10 Essential (primary) hypertension; J45.909 Unspecified asthma, uncomplicated; F41.9 Anxiety disorder, unspecified; F17.210 Nicotine dependence, cigarettes, uncomplicated; F17.290 Nicotine dependence, other tobacco product, uncomplicated; R53.1 Weakness; R20.2 Paresthesia of skin; R00.2 Palpitations; E66.01 Morbid (severe) obesity due to excess calories; Z68.42 Body mass index [BMI] 45.0-49.9, adult; F32.A Depression, unspecified; E55.9 Vitamin D deficiency, unspecified; I45.10 Unspecified right bundle-branch block; E29.1 Testicular hypofunction; I51.89 Other ill-defined heart diseases; R29.700 NIHSS score 0; R90.82 White matter disease, unspecified; H53.8 Other visual disturbances; R47.01 Aphasia; Z87.442 Personal history of urinary calculi; M47.812 Spondylosis without myelopathy or radiculopathy, cervical region; M48.02 Spinal stenosis, cervical region; Z79.51 Long term (current) use of inhaled steroids; Z79.899 Other long term (current) drug therapy; Z83.438 Family history of other disorder of lipoprotein metabolism and other lipidemia; Z81.8 Family history of other mental and behavioral disorders; Z82.3 Family history of stroke; Z82.49 Family history of ischemic heart disease and other diseases of the circulatory system; Z82.5 Family history of asthma and other chronic lower respiratory diseases
CPT/HCPCS: 36415; 70450; 70551; 70552; 71045; 72156; 80053; 80061; 81001; 82948; 83036; 84484; 85025; 85027; 85610; 85730; 93005; 93880; 96372; 96374; 99285; A9270; A9577; C8929; G0378; G0379; J1650; Q9957

== ENCOUNTER 2023-05-01 11:38 | Outpatient (CLI) | payer BC, SELFPAY ==
--- NOTE | ~2023-05-01 | XR_ITS ---
XR abdomen/kub 1V DATE: 05/01/2023 11:57 INDICATION: Kidney calculus TECHNIQUE: AP views COMPARISON: None FINDINGS: One or 2 up to 1 cm or larger calcifications overlying the lower pole right kidney suggesti ng right nephrolithiasis. Subtle pinpoint lower pole left renal calcified calculus. Noncontrast CT abdomen examination would be more reliable for evaluation of urinary tract calculi. The psoas shadows are intact. No visceromegaly. There is a prominent amount of fecal material in the ascending colon. No bowel obstruction. IMPRESSION: Suspected bilateral nephrolithiasis Reviewed, dictated and finalized at [facility]. Reviewed, dictated and finalized at [facility].
== END 2023-05-01 11:39 ==
PROVIDERS: PCP Family Medicine; Visit Provider Physician Assistant
DX: N20.0 Calculus of kidney (principal)
CPT/HCPCS: 74018

== ENCOUNTER 2023-08-27 00:18 | Emergency (ER) | payer BC, SELFPAY ==
--- NOTE | 2023-08-27 00:20 | ECG_ITS ---
Test Date: 2023-08-27 00:24:28 Measurements Intervals [place] Rate: 81 P: 19 FL: 174 QRS: 2 QRSD: 113 T: 17 QT: 392 QTc: 456 Interpretive Statements SINUS RHYTHM LOW QRS VOLTAGE IN PRECORDIAL LEADS INCOMPLETE RIGHT BUNDLE BRANCH BLOCK BORDERLINE ST-T WAVE ABNORMALITY- DIFFUSE LEADS BASELINE ARTIFACT- I, II BORDERLINE ECG No previous ECG available for comparison Electronically Signed On 08-27-2023 07:17:24 CDT by Gordo Calvert D.O.
[2023-08-27 00:27] VITALS: BP 148/90; PULSE 81; RESP 15; TEMP 36.2; O2SAT 98
[2023-08-27 01:52] VITALS: BP 103/80; PULSE 77; RESP 16; O2SAT 94
[2023-08-27 03:29] VITALS: BP 100/62; PULSE 69; RESP 16; O2SAT 94
--- NOTE | 2023-08-27 04:51 | ED.GENADULT ---
HPI - General Adult General Chief complaint: Anxiety Stated complaint: anxiety Time Seen by Provider: 08/27/23 04:43 History of Present Illness HPI narrative: Patient is a 42-year-old gentleman who presents emergency department with chief complaint of panic attack. Patient reports he has history of panic disorder and reports that he takes Xanax on a p.r.n. basis. The patient reports that he ran out of his Xanax about a week ago and has not seen his primary care provider. Related Data Allergies Allergy/AdvReac Type Severity Reaction Status Date / Time naproxen Allergy Unknown dizzy, Verified 04/15/23 13:49 altered mental status Review of Systems Review of Systems: A 10 system review of systems was completed on the patient and is negative except for what is stated in the HPI. Nursing and ancillary documentation was reviewed. [facility] Past Medical History Medical History Anxiety Asthma Depression Hypertension 2018 Hypogonadism in male Kidney stone 2016 Obesity Vitamin D deficiency Family History Family History Other Asthma Carcinoma of colon Cerebrovascular accident Depression Glaucoma Hyperlipidemia Hypertension Social History Social History Smoking status: Current every day smoker Tobacco type: e-cigarettes/vaping Second hand tobacco smoke exposure: No Additional smoking assessment comments: currently vapes Alcohol intake: current Substance use: never Substance use type: does not use Lack of Transportation: No Lack of Food: Never True Current Housing: I Have Housing Concerned About Future Housing: No Difficulty Paying Gas/Electric Bills: No Difficulty Paying for Meds: No Currently Unemployed: No Difficulty w/ Childcare or Family Care: No Living arrangements: with family Gender identity (if verbalized by the patient): Male Spiritual care concerns: No Agree to blood products: Yes Exam Narrative: GENERAL: Well-appearing, well-nourished, and in no acute distress. HEAD: Normocephalic, atraumatic. EYES: PERRLA and EOMI. ENT: Nares clear, no rhinorrhea or epistaxis. Mucous membranes moist. NECK: Supple. CHEST: Clear to auscultation. No respiratory distress. HEART: Regular rate and rhythm. No murmur heard. Normal peripheral pulses. ABDOMEN: Soft, nontender, nondistended, normal active bowel sounds. EXTREMITIES: Normal range of motion. No edema. SKIN: Warm, dry, no rash. NEURO: No focal deficits. Alert and oriented x3. PSYCH: Normal mood and affect. Course Vital Signs Vital signs: Vital Signs Temperature 36.2 C L 08/27/23 00:27 Pulse Rate 81 08/27/23 00:27 Respiratory Rate 15 08/27/23 00:27 Blood Pressure 148/90 H 08/27/23 00:27 Pulse Oximetry 98 08/27/23 00:27 Oxygen Delivery Room Air 08/27/23 00:27 Temperature 36.2 C L 08/27/23 00:27 Pulse Rate 69 08/27/23 03:29 Respiratory Rate 16 08/27/23 03:29 Blood Pressure 100/62 08/27/23 03:29 Pulse Oximetry 94 08/27/23 03:29 Oxygen Delivery Room Air 08/27/23 00:27 Medical Decision Making [facility] Narrative Medical decision making narrative: Differential diagnosis includes panic attack, ACS, dysrhythmia EKG showed sinus rhythm rate of [address] elevation or ST depression The patient is currently asymptomatic patient was started on hydroxyzinen as-needed basis and she follow-up with his primary care provider for refill of his Xanax Vital Signs Vital Signs: Vital Signs Temperature 36.2 C L 08/27/23 00:27 Pulse Rate 81 08/27/23 00:27 Respiratory Rate 15 08/27/23 00:27 Blood Pressure 148/90 H 08/27/23 00:27 Pulse Oximetry 98 08/27/23 00:27 Oxygen Delivery Room Air 08/27/23 00:27 Temperature 36.2 C L 08/27/23 00:27 Pulse
[2023-08-27] MEDS: hydrOXYzine HCL 25 MG TABLET PO (05:12)
[2023-08-27 05:16] VITALS: BP 110/77; PULSE 80; RESP 17; O2SAT 100
== END 2023-08-27 05:17 | disposition home or self-care (01) ==
PROVIDERS: Emergency Provider Emergency Medicine; PCP Family Medicine
DX: F41.0 Panic disorder [episodic paroxysmal anxiety] (principal); J45.909 Unspecified asthma, uncomplicated; I10 Essential (primary) hypertension; E55.9 Vitamin D deficiency, unspecified; F32.A Depression, unspecified; F17.290 Nicotine dependence, other tobacco product, uncomplicated; Z87.442 Personal history of urinary calculi; Z79.82 Long term (current) use of aspirin; Z79.899 Other long term (current) drug therapy
CPT/HCPCS: 93005; 99283; A9270

== ENCOUNTER 2023-11-18 11:54 | Emergency (ER) | payer SELFPAY ==
[2023-11-18 12:02] VITALS: BP 136/77; PULSE 93; RESP 16; TEMP 36.7; O2SAT 99
--- NOTE | 2023-11-18 12:16 | ED.BACK ---
HPI - Back Pain/Injury General Chief Complaint: Back Pain/Injury Stated Complaint: Right Leg Pain Time Seen by Provider: 11/18/23 11:54 Source: patient Mode of arrival: ambulatory Limitations: no limitations History of Present Illness HPI Narrative: Patient is a 43-year-old male who presents with right low back pain radiating down right leg that started over the weekend. 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 Denies any numbness or tingling down the leg just pain. Patient has used icy Hot with mild relief. Denies any loss of bowel or bladder Related Data Allergies Allergy/AdvReac Type Severity Reaction Status Date / Time naproxen Allergy Unknown dizzy, Verified 11/18/23 11:56 altered mental status Review of Systems Review of Systems: All systems reviewed & are unremarkable except as noted in HPI and below Constitutional: Constitutional: Denies body ache(s), Denies chills, Denies fatigue, Denies fever(s), Denies headache(s), Denies malaise and Denies weakness Eyes: Eyes: Denies blurry vision, Denies irritation and Denies loss of vision ENT: Denies otalgia, Denies headache(s), Denies nasal discharge, Denies sinus pain and Denies sore throat Cardiovascular: Cardiovascular: Denies chest pain, Denies irregular heart rhythm and Denies dyspnea Respiratory: Respiratory: Denies dyspnea Gastrointestinal: Gastrointestinal: Denies abdominal pain, Denies melena, Denies hematochezia, Denies diarrhea, Denies nausea and Denies vomiting Musculoskeletal: Musculoskeletal: Reports back pain, Denies myalgias and Denies arthralgias Integumentary/Breasts: Skin/Breast: Denies pruritus and Denies rash Neurologic: Denies headache(s), Denies loss of vision and Denies weakness Psychiatric: Psychiatric: Reports no additional psychiatric complaints Endocrine: Endocrine: Denies fatigue PMFSH Past Medical History Medical History Anxiety Asthma Depression Hypertension 2018 Hypogonadism in male Kidney stone 2016 Obesity Vitamin D deficiency Family History Family History Other Asthma Carcinoma of colon Cerebrovascular accident Depression Glaucoma Hyperlipidemia Hypertension Social History Social History Smoking status: Current every day smoker Tobacco type: e-cigarettes/vaping Second hand tobacco smoke exposure: No Additional smoking assessment comments: currently vapes Alcohol intake: current Substance use: never Substance use type: does not use Lack of Transportation: No Lack of Food: Never True Current Housing: I Have Housing Concerned About Future Housing: No Difficulty Paying Gas/Electric Bills: No Difficulty Paying for Meds: No Currently Unemployed: No Difficulty w/ Childcare or Family Care: No Living arrangements: with family Gender identity (if verbalized by the patient): Male Spiritual care concerns: No Agree to blood products: Yes Comments At time of signature, agree with nursing past medical, surgical, social and family history. There is no relevant family history pertinent to the presenting complaint. Exam Const: General: cooperative, healthy appearing, comfortable, no acute distress and well nourished Nutritional Appearance: well nourished Orientation/consciousness: patient oriented x3 Limitations: no limitations HENMT: Head: normal to inspection, normocephalic and atraumatic Ears: hearing grossly normal bilaterally and external ears normal Face/Nose/Sinus: Normal external nose present, normal facial exam and face symmetric Face and sinus: normal facial exam and face symmetric Mouth: Yes lip normal Eyes: General: appearance normal, both eyes and all related structures Alignment and Position: alignment normal and position normal Periorbital
== END 2023-11-18 12:50 | disposition home or self-care (01) ==
PROVIDERS: Emergency Provider Nurse Practitioner Family; PCP Family Medicine
DX: M54.31 Sciatica, right side (principal); F17.290 Nicotine dependence, other tobacco product, uncomplicated; J45.909 Unspecified asthma, uncomplicated; I10 Essential (primary) hypertension; E66.9 Obesity, unspecified; Z68.42 Body mass index [BMI] 45.0-49.9, adult; F41.9 Anxiety disorder, unspecified; E55.9 Vitamin D deficiency, unspecified
CPT/HCPCS: 99213; G0463

== ENCOUNTER 2024-04-06 13:18 | Outpatient (CLI) | payer BC, SELFPAY ==
[2024-04-06 15:05] LABS: Influenza A QL RT-PCR Negative (Negative); Influenza B QL RT-PCR Negative (Negative); RSV RNA, RT-PCR Negative (Negative); SARS-CoV-2 RNA PCR Negative (Negative)
--- OUTSIDE RECORDS SUMMARY | 2024-04-06 15:15 | XMS_ITS | Encounter Summary ---
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 Historical Provider Final Res ult documented in this encounter Visit Diagnoses Not on filedocumented in this encounter Care Teams Salesperson Handbags Relationship Specialty Start Date End Date Stacy Puentes MD [address] [facility] [place] [address] PCP - General Internal Medicine 08/20/18 documented as of this encounter
--- OUTSIDE RECORDS SUMMARY | 2024-04-06 15:15 | XMS_ITS | Referral Summary ---
Author Organization [facility] at [facility] Address [address] [place] [address] Care Team Providers Care Instructor Private Name Role Phone Stacy Puentes MD Primary Care Provider [phone] Allergies Active Allergy Reactions Criticality Noted Date Comments Naproxen Unknown 06/22/2018 Medications vortioxetine (TRINTELLIX) 20 mg tabletIndication s:major depressive disorder Take 1 tablet (20 mg total) by mouth daily 30 tablet 2 08/21/2018 Active amLODIPine (NORVASC) 10 mg tablet TAKE 1 TABLET(10 MG) BY MOUTH DAILY 90 tablet 1 10/26/2018 Active valsartan-hydroc hlorothiazide (DIOVAN-HCT) 320-25 mg per tablet TAKE 1 TABLET BY MOUTH DAILY 90 tablet 1 10/26/2018 Active Active Problems Problem Noted Date Diagnosed Date Hyperlipidemia, unspecified 10/03/2015 Assessment & Plan (08/21/2018 12:36 PM CDT): We will order blood work and the patient was advised on low-fat diet. Will continue to monitor Bronchial asthma 05/03/2015 Assessment & Plan (08/21/2018 12:34 PM CDT): Asymptomatic and he is not on treatment Depression 05/03/2015 Assessment & Plan (08/21/2018 12:36 PM CDT): We will stop Viibryd slow and start trintellix 10 mg daily for 2 weeks then we will increase the dose to 20 mg daily. Will see him again for follow-up in few weeks and the patient will call for worsened symptoms. The patient was advised to go to the emergency room for suicidal ideations. Essential (primary) hypertension 05/03/2015 Assessment & Plan (08/21/2018 12:36 PM CDT): We will resume the medications and we discussed low-salt diet and we discussed compliance with medications and follow-up. Morbid obesity 05/03/2015 Assessment & Plan (08/21/2018 12:36 PM CDT): BMI Follow-up includes: nutrition counseling. The patient was advised to exercise 5 times a week for 30 minutes each time. We discussed low calorie diet. Discussed lifestyle changes. 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 Gender Identity Not on file Sexual Orientation Not on file Last Filed Vital Signs Vital Sign Reading Time Taken Comments Blood Pressure 145/110 08/21/2018 12:04 PM CDT Pulse 75 08/21/2018 12:04 PM CDT Temperature 36.8 C (98.2 F) 08/21/2018 12:04 PM CDT Respiratory Rate 18 08/21/2018 12:04 PM CDT Oxygen Saturation 96% 08/21/2018 12:04 PM CDT Inhaled Oxygen Concentration - - Weight 153.3 kg (338 lb) 08/21/2018 12:04 PM CDT Height 175.3 cm (5' 9 ) 08/21/2018 12:04 PM CDT Body Mass Index 49.91 08/21/2018 12:04 PM CDT Plan of Treatment Not on file Insurance [facility] CHOICE PLUS Care Teams Instructor Private Relationship Specialty Start Date End Date Stacy Puentes MD [facility] [place] [place] [address] PCP - General Internal Medicine 08/20/18
--- OUTSIDE RECORDS SUMMARY | 2024-04-06 15:15 | XMS_ITS | Clinical Summary ---
Author Organization [facility] Address [address] [place] [address] Care Team Providers Care Correctional Officer Name Role Phone Stacy Puentes MD Primary Care Provider [phone] Allergies Active Allergy Reactions Criticality Noted Date [...] discussed low calorie diet. Discussed lifestyle changes. 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 [address] [address] PCP - General Internal Medicine 08/20/18
== END 2024-04-06 13:19 | disposition home or self-care (01) ==
LOC: ANHLAB 13:21
PROVIDERS: PCP Family Medicine; Visit Provider Family Medicine
DX: J06.9 Acute upper respiratory infection, unspecified (principal)
CPT/HCPCS: 87637